=== PATIENT | female | born 1940 | race Caucasian/White ===

== ENCOUNTER 2022-11-09 13:25 | Emergency (ER) | payer OTHER, MEDICARE, BC ==
[2022-11-09 14:00] LABS: PTT,PARTIAL THROMBOPLSTIN TIME 23.5 SEC (23.6-33.6)
[2022-11-09 14:01] LABS: CHLORIDE,CL 99 mmol/L (98-107); SODIUM,NA 137 mmol/L (136-145)
[2022-11-09 14:02] LABS: ANION GAP 13.3 mmol/L (5-15); ESTIMATED GFR 38 mL/min (>=60)
[2022-11-09] MEDS ORDERED: Lidocaine 1% 10 ML MDV INJECT ONE (14:04)
[2022-11-09] MEDS ORDERED: Acetaminophen/oxyCODONE 325-5 MG Tab PO ONE (14:47)
[2022-11-09] MEDS ORDERED: Diphtheria,Pertussis(Acell),Tetanus Vaccine 0.5 ML Syringe IM ONE (15:43)
== END 2022-11-09 16:19 | disposition home or self-care (01) ==
LOC: VM.ED 13:25
DX: S61.211A Laceration without foreign body of left index finger without damage to nail, initial encounter (principal); S60.413A Abrasion of left middle finger, initial encounter; M25.511 Pain in right shoulder; I10 Essential (primary) hypertension; I25.2 Old myocardial infarction; J45.909 Unspecified asthma, uncomplicated; Z23 Encounter for immunization; Z79.899 Other long term (current) drug therapy; Z88.1 Allergy status to other antibiotic agents; Z88.2 Allergy status to sulfonamides; V49.10XA Passenger injured in collision with unspecified motor vehicles in nontraffic accident, initial encounter; Y92.410 Unspecified street and highway as the place of occurrence of the external cause
CPT/HCPCS: 12001; 36415; 70450; 71045; 72125; 72170; 80053; 85025; 85610; 85730; 90471; 90715; 99283; 99284-25; A9270-GY; J3490